=== PATIENT | female | born 1960 | race Caucasian/White ===

== ENCOUNTER → 2018-10-20 | Outpatient (CLI) | payer OTHER ==
[~2018-10-20] MED LIST: MELA3 PO; Macrodantin50 MG PO
[2018-10-22 16:07] LABS: HPV 16 Negative (Negative); HPV 18 Negative (Negative); HPV OTHER HR TYPES Negative (Negative)
== END | disposition home or self-care (01) ==
LOC: LAB 16:54 → LAB SHORT 16:54
PROVIDERS: Family Medicine
DX: Z01.419 Encounter for gynecological examination (general) (routine) without abnormal findings (principal)
CPT/HCPCS: 87624; G0145

== ENCOUNTER → 2022-05-11 | Outpatient (CLI) | payer OTHER | LOC: LAB SHORT 17:10 → LAB 17:10 | DX: R30.0 Dysuria (principal) | CPT/HCPCS: 87086 ==

== ENCOUNTER → 2022-05-13 | Outpatient (CLI) | payer OTHER | END | disposition home or self-care (01) | LOC: LAB 13:30 → LAB SHORT 13:30 | DX: N39.0 Urinary tract infection, site not specified (principal) | CPT/HCPCS: 87086 ==

== ENCOUNTER → 2022-05-20 | Outpatient (CLI) | payer OTHER ==
[2022-05-20 18:29] LABS: Source, Urine Voided
[2022-05-20 19:38] LABS: Bacteria Few /hpf; Red Blood Cells, Urine 0-2 /hpf (0-2); Squamous Epithelial Cells Not Seen /hpf (Few); White Blood Cells, Urine 0-2 /hpf (0-5)
== END | disposition home or self-care (01) ==
LOC: LAB 17:57 → LAB SHORT 17:57
PROVIDERS: Family Medicine
DX: N39.0 Urinary tract infection, site not specified (principal)
CPT/HCPCS: 81015; 87086

== ENCOUNTER 2023-11-04 09:18 | Day surgery (SDC) | payer BC ==
[~2023-11-04] VITALS: Ht 165.1 cm; Wt 59.3 kg
[~2023-11-04 09:18] MED LIST changes: +CALCIUM CARBON500 M1 PO; +Lactated Ringer's 1,000 ML IV ONE; +MELATONIN5 M1; +VITAMIN D5000 UNIT PO; +propofoL 50 ML IV ONE
[2023-11-04] MEDS ORDERED: Lactated Ringer's 1,000 ML IV ONE (10:46)
[2023-11-04] MEDS ORDERED: Ondansetron HCl 2 MG / ML 2ML Vial ONE (11:18)
[2023-11-04 11:42] VITALS: BP 136/87
== END 2023-11-04 11:50 | disposition home or self-care (01) ==
LOC: ORSCSDS 09:18
PROVIDERS: Surgery
PROC: 0DJD8ZZ Inspection of Lower Intestinal Tract, Via Natural or Artificial Opening Endoscopic (ICD-10-PCS; principal; 2023-11-04 10:30)
DX: Z12.11 Encounter for screening for malignant neoplasm of colon (principal); Z86.010 Personal history of colon polyps; Z87.891 Personal history of nicotine dependence
CPT/HCPCS: J2405; J2704; J7120

== ENCOUNTER → 2024-06-06 | Outpatient (CLI) | payer BC ==
[~2024-06-06] MED LIST changes: -Lactated Ringer's 1,000 ML IV ONE; -propofoL 50 ML IV ONE
== END ==
LOC: LAB 15:48 → LAB SHORT 15:48
DX: N39.0 Urinary tract infection, site not specified (principal)
CPT/HCPCS: 87077; 87086; 87186

== ENCOUNTER 2025-04-05 11:40 | Emergency (ER) | payer BC ==
[~2025-04-05] VITALS: Ht 165.1 cm; Wt 60.8 kg
[2025-04-05 11:54] VITALS: BP 173/109
[2025-04-05] MEDS ORDERED: IBU600 M1 PO (12:17)
[2025-04-05] MEDS ORDERED: META800 PO (12:17)
[2025-04-05] MEDS ORDERED: ACETAMINOPHEN500 MG PO (12:17)
== END 2025-04-05 12:22 | disposition home or self-care (01) ==
LOC: ER 11:40
DX: M25.552 Pain in left hip (principal); Z79.899 Other long term (current) drug therapy; Z90.89 Acquired absence of other organs; Z87.891 Personal history of nicotine dependence
CPT/HCPCS: 99282